=== PATIENT | female | born 1980 | race Caucasian/White ===

== ENCOUNTER 2016-08-21 11:13 | Outpatient (CLI) | payer MEDICARE, MEDICAID ==
[~2016-08-21] VITALS: Ht 160 cm; Wt 99.3 kg
[~2016-08-21 11:13] MED LIST: CITA10TA70 PO; SMV20T PO
[2016-08-21] MEDS ORDERED: DEXAMETHASONE PF 10 MG/ML (DECADRON) VIAL ONE (11:20)
--- OUTSIDE RECORDS SUMMARY | 2016-08-21 11:20 | XMS REPORT ---
Author Author Darshana Major [facility] Address [address] [place], [place] [id number] Care Team Providers Care Belt Changer Name Role Phone Darshana Major PCP Unavailable Allergies and Adverse Reactions Name Reaction Notes NO KNOWN DRUG ALLERGIES Plan of Treatment Planned Activity Comments Planned Date Planned Time Plan/Goal COMPREHEN METABOLIC PANEL 06/26/2014 12:00 AM LIPID PANEL 06/26/2014 12:00 AM Breast ultrasound 09/20/2014 12:00 AM URINALYSIS AUTO W/O SCOPE 10/19/2014 12:00 AM COMPREHEN METABOLIC PANEL 11/28/2014 12:00 AM US EXAM PELVIC COMPLETE 11/30/2014 12:00 AM Medications Active Name Start Date Estimated Completion Date SIG Comments propranolol oral tablet 40 mg 02/15/2014 take 1 tablet (40 mg) by oral route every 12 hours duloxetine oral capsule,delayed release(DR/EC) 60 mg 04/09/2014 TAKE 1 CAPSULE BY MOUTH ONCE DAILY naproxen oral tablet 500 mg 04/09/2014 TAKE 1 TABLET BY ORAL ROUTE 2 TIMES A DAY cyclobenzaprine oral tablet 10 mg 04/26/2014 take 1 tablet daily at HS propranolol oral tablet 40 mg 06/08/2014 TAKE 1 TABLET BY MOUTH EVERY 12 HOURS naproxen oral tablet 500 mg 07/18/2014 TAKE 1 TABLET BY ORAL ROUTE 2 TIMES A DAY orphenadrine citrate oral tablet extended release 100 mg 09/12/2014 01/10/2015 take 1 tablet (100 mg) by oral route 2 times per day in the morning and evening as needed for 30 days Imitrex oral tablet 25 mg take 1 tablet (25 mg) by oral route once with fluids as early as possible after the onset of a migraine attack;may repeat after 2 hours if h Topamax oral tablet 50 mg take 1 tablet (50 mg) by oral route 2 times per day Bactroban topical ointment 2 % 10/23/2014 apply a small amount to the affected area by topical route 3 times per day Toprol XL oral tablet extended release 24 hr 50 mg 10/23/2014 take 1 tablet (50 mg) by oral route once daily cyclobenzaprine oral tablet 10 mg 11/14/2014 TAKE 1 TABLET BY MOUTH EVERY NIGHT AT BEDTIME Viibryd oral tablet 40 mg 11/14/2014 take 1 tablet (40 mg) by oral route once daily with food terbinafine HCl oral tablet 250 mg 11/14/2014 take 1 tablet by oral route daily Belviq oral tablet 10 mg 11/14/2014 01/13/2015 take 1 tablet (10 mg) by oral route 2 times per day for 30 days Protonix oral tablet,delayed release (DR/EC) 40 mg 11/27/2014 02/25/2015 take 1 tablet (40 mg) by oral route once daily for 30 days Name Start Date Expiration Date SIG Comments Bactrim DS Oral tablet 800-160 mg 04/26/2013 05/03/2013 take 1 tablet by oral route every 12 hours for 7 days ibuprofen Oral tablet 800 mg 07/04/2013 11/01/2013 take 1 tablet by oral route 3 times a day for 30 days prednisone oral tablet 20 mg 08/16/2013 take 40mg daily x2 days then 1 tablet daily x4 days then 1/2 tablet daily x4 days. Provera oral tablet 5 mg 09/25/2013 12/04/2013 take 1 tablet (5 mg) by oral route once daily for 10 days every month Macrobid oral capsule 100 mg 09/27/2013 10/04/2013 take 1 capsule (100 mg) by oral route every 12 hours with food for 7 days oxybutynin chloride oral tablet 5 mg 10/18/2013 11/17/2013 take 1 tablet (5 mg ) by oral route 2 times per day for 30 days pravastatin oral tablet 40 mg 11/22/2013 03/22/2014 take 1 tablet (40 mg) by oral route once daily at bedtime for 30 days Medrol (Rah) oral tablets,dose pack 4 mg 04/10/2014 take as directed Lipitor oral tablet 40 mg 08/28/2014 11/26/2014 take 1 tablet (40 mg) by oral route once daily for 30 days Provera oral tablet 10 mg 09/20/2014 10/18/2014 take 1 tablet (10 mg) by oral route once daily for 14 days for 14 days Ultram oral tablet 50 mg 10/29/2014 11/02/2014 take 1 tablet (50 mg) by oral route every 4-6 hours as needed for 4 days Macrobid oral capsule 100 mg 11/05/2014 11/08/2014 take 1 capsule (100 mg) by oral route 2 times per day with food for 3 days Discontinued Name Start Date Discontinued Date SIG Comments Prevacid Oral 12/29/2013 naproxen Oral tablet 500 mg 02/21/2013 04/10/2013 take 1 tablet by oral route 2 times a day [id number] Oral capsule 47-313-32-30 mg 04/18/2014 take 1 capsule by oral route every 4 hours as needed not to exceed 6 capsules per 24hrs Bactroban Topical Ointment 2 % 04/26/2013 06/28/2013 apply a small amount to the affected area by topical route 3 times per day Prozac oral capsule 20 mg 08/10/2013 take 1 capsule (20 mg) by oral route once daily Toprol XL oral tablet extended release 24 hr 50 mg 07/19/2013 08/10/2013 take 1 tablet (50 mg) by oral route once daily Cymbalta oral capsule,delayed release(DR/EC) 30 mg 08/10/2013 04/18/2014 take 1 capsule daily x7 days then increase to 60mg daily cyclobenzaprine oral tablet 10 mg 11/02/2013 03/30/2014 1 tab daily at HS phentermine oral tablet 37.5 mg 11/20/2013 03/30/2014 take 1 tablet (37.5 mg) by oral route once daily before breakfast amitriptyline oral tablet 50 mg 12/29/2013 04/26/2014 take 1 tablet (50 mg) by oral route once daily at bedtime Nexium oral capsule,delayed release(DR/EC) 40 mg 12/29/2013 01/03/2014 take 1 capsule (40 mg) by oral route once daily Protonix oral tablet,delayed release (DR/EC) 40 mg 01/03/2014 06/26/2014 take 1 tablet (40 mg) by oral route once daily for 30 days Claritin oral tablet 10 mg 02/27/2014 04/18/2014 take 1 tablet (10 mg) by oral route once daily Sudafed 12 Hour oral tablet extended release 120 mg 03/30/2014 06/26/2014 take 1 tablet (120 mg) by oral route every 12 hours Fioricet oral capsule 50-300-40 mg 10/29/2014 take 1 capsule by oral route every 4 hours as needed pravastatin oral tablet 40 mg 04/24/2014 08/28/2014 TAKE 1 TABLET BY MOUTH EVERY NIGHT AT BEDTIME pantoprazole oral tablet,delayed release (DR/EC) 40 mg 05/21/2014 11/14/2014 TAKE 1 TABLET BY MOUTH ONCE DAILY cyclobenzaprine oral tablet 10 mg 06/26/2014 10/03/2014 TAKE 1 TABLET BY MOUTH EVERY NIGHT AT BEDTIME Belviq oral tablet 10 mg 06/26/2014 08/01/2014 take 1 tablet (10 mg) by oral route 2 times per day fatgue duloxetine oral capsule,delayed release(DR/EC) 60 mg 07/18/2014 11/14/2014 TAKE 1 CAPSULE BY MOUTH ONCE DAILY phentermine oral tablet 37.5 mg 08/01/2014 09/13/2014 take 1 tablet (37.5 mg) by oral route once daily before breakfast switched to belviq Contrave oral tablet extended release 8-90 mg 08/31/2014 09/03/2014 take 2 tablets by oral route 2 times per day in the morning and evening for 30 days Topamax oral tablet 25 mg 09/18/2014 10/09/2014 take 1 tablet by oral route 2 times a day propranolol oral tablet 40 mg 10/08/2014 10/23/2014 TAKE 1 TABLET BY MOUTH EVERY 12 HOURS sumatriptan nasal 11/21/2014 Flagyl oral tablet 500 mg 11/21/2014 take 1 tablet by oral route every 8 hours doxycycline hyclate oral tablet 100 mg 11/21/2014 take 1 tablet by oral route 2 times a day Nexium oral capsule,delayed release(DR/EC) 40 mg 11/14/2014 11/21/2014 take 1 capsule (40 mg) by oral route once daily Problem List Description Status Onset Back Pain Active Depression Active Gastroesophageal Reflux Active Stress Incontinence, Female Active 08/23/2013 Tachycardia Active 09/07/2013 Pelvic Pain - Right Active 09/25/2013 Abnormal Uterine Bleeding Active 09/25/2013 Insomnia Active 11/20/2013 Radiculopathy, lumbosacral Active 04/26/2014 Low Back Pain Active 06/26/2014 Myofascial pain Active 06/26/2014 Renal cyst Active 06/26/2014 Morbid obesity Active 09/13/2014 Hyperlipidemia, unspecified Active 09/13/2014 Anxiety Active 11/14/2014 Depression Active 11/14/2014 Vital Signs Date Time BP-Sys(mm[Hg] BP-[place](mm[Hg]) HR(bpm) RR(rpm) Temp WT HT HC BMI BSA BMI Percentile O2 Sat(%) 11/21/2014 4:13:00 PM 116 mmHg 59 mmHg 91 bpm 98.5 F 218 lbs 61 in 41.19 kg/m2 2.06 m2 11/14/2014 2:51:00 PM 120 mmHg 62 mmHg 85 bpm 20 rpm 98.3 F 217 lbs 61 in 41.0014 kg/m 2.0582 m 98 % 11/05/2014 4:04:00 PM 125 mmHg 64 mmHg 95 bpm 96.4 F 218.25 lbs 61 in 41.24 kg/m2 2.06 m2 10/29/2014 3:38:00 PM 124 mmHg 68 mmHg 115 bpm 97.7 F 221 lbs 61 in 41.7572 kg/m 2.0771 m 10/23/2014 1:51:00 PM 126 mmHg 74 mmHg 112 bpm 18 rpm 98.6 F 226.25 lbs 61 in 42.75 kg/m2 2.10 m2 98 % 10/09/2014 3:08:00 PM 126 mmHg 76 mmHg 113 bpm 18 rpm 98.1 F 223.5 lbs 61 in 42.2295 kg/m 2.0888 m 98 % 10/03/2014 10:32:00 AM 132 mmHg 80 mmHg 71 bpm 20 rpm 96 F 224 lbs 61 in 42.32 kg/m2 2.09 m2 09/20/2014 1:37:00 PM 120 mmHg 82 mmHg 84 bpm 98.1 F 225 lbs 62 in 41.1526 kg/m 2.1129 m 09/18/2014 2:13:00 PM 132 mmHg 72 mmHg 74 bpm 18 rpm 97.8 F 227.375 lbs 62 in 41.59 kg/m2 2.12 m2 98 % 09/13/2014 10:07:00 AM 124 mmHg 64 mmHg 99 bpm 18 rpm 97.3 F 231.5 lbs 62 in 42.3415 kg/m 2.1432 m 100 % 08/31/2014 10:45:00 AM 124 mmHg 64 mmHg 106 bpm 18 rpm 96.8 F 230 lbs 62 in 42.07 kg/m2 2.14 m2 98 % 08/01/2014 10:39:00 AM 120 mmHg 70 mmHg 95 bpm 20 rpm 97.8 F 228.125 lbs 62 in 41.7242 kg/m 2.1276 m 97 % 06/26/2014 2:20:00 PM 114 mmHg 77 mmHg 118 bpm 18 rpm 98.2 F 228.4 lbs 63 in 40.46 kg/m2 2.15 m2 96 % 06/26/2014 8:46:00 AM 112 mmHg 64 mmHg 98 bpm 18 rpm 97.1 F 229 lbs 63 in 40.5651 kg/m 2.1488 m 04/26/2014 9:38:00 AM 112 mmHg 80 mmHg 84 bpm 16 rpm 96.1 F 219 lbs 63 in 38.79 kg/m2 2.10 m2 04/10/2014 11:00:00 AM 120 mmHg 72 mmHg 88 bpm 18 rpm 97.5 F 216.6 lbs 63 in 38.3686 kg/m 2.0898 m 100 % 03/30/2014 9:55:00 AM 128 mmHg 64 mmHg 62 bpm 18 rpm 98.2 F 215.5 lbs 63 in 38.17 kg/m2 2.08 m2 98 % 02/27/2014 10:25:00 AM 120 mmHg 76 mmHg 73 bpm 16 rpm 98.3 F 209 lbs 63 in 37.0223 kg/m 2.0528 m 98 % 12/29/2013 10:44:00 AM 124 mmHg 64 mmHg 74 bpm 18 rpm 96.2 F 209.5 lbs 63 in 37.11 kg/m2 2.06 m2 98 % 12/26/2013 3:54:00 PM 124 mmHg 69 mmHg 59 bpm 96.7 F 213 lbs 63 in 37.7309 kg/m 2.0723 m 11/20/2013 2:58:00 PM 124 mmHg 66 mmHg 92 bpm 18 rpm 97.2 F 216.25 lbs 63 in 38.31 kg/m2 2.09 m2 97 % 10/25/2013 4:52:00 PM 114 mmHg 67 mmHg 95 bpm 97.2 F 216 lbs 63 in 38.2623 kg/m 2.0869 m 09/26/2013 10:18:00 AM 108 mmHg 68 mmHg 57 bpm 16 rpm 97 F 214 lbs 63 in 37.91 kg/m2 2.08 m2 99 % 09/25/2013 10:06:00 AM 122 mmHg 80 mmHg 84 bpm 97.6 F 213 lbs 63 in 37.7309 kg/m 2.0723 m 09/21/2013 1:15:00 PM 128 mmHg 78 mmHg 88 bpm 20 rpm 98.1 F 212.3 lbs 63 in 37.61 kg/m2 2.07 m2 09/07/2013 3:03:00 PM 129 mmHg 85 mmHg 91 bpm 97.2 F 219 lbs 63 in 38.7937 kg/m 2.1013 m 09/07/2013 1:38:00 PM 124 mmHg 68 mmHg 90 bpm 18 rpm 216.125 lbs 63 in 38.28 kg/m2 2.09 m2 98 % 08/29/2013 1:57:00 PM 118 mmHg 78 mmHg 101 bpm 97.4 F 217 lbs 63 in 38.4394 kg/m 2.0917 m 08/23/2013 1:48:00 PM 117 mmHg 75 mmHg 90 bpm 97.8 F 216 lbs 63 in 38.26 kg/m2 2.09 m2 08/16/2013 2:14:00 PM 124 mmHg 64 mmHg 95 bpm 18 rpm 98.5 F 212.25 lbs 63 in 37.598 kg/m 2.0687 m 98 % 08/13/2013 2:35:00 PM 99 mmHg 70 mmHg 103 bpm 18 rpm 97.3 F 211.375 lbs 63 in 37.44 kg/m2 2.06 m2 99 % 08/10/2013 3:26:00 PM 124 mmHg 74 mmHg 98 bpm 18 rpm 96.9 F 215.125 lbs 63 in 38.1073 kg/m 2.0826 m 100 % 08/03/2013 10:42:00 AM 132 mmHg 68 mmHg 109 bpm 18 rpm 96.7 F 218.375 lbs 63 in 38.68 kg/m2 2.10 m2 100 % 07/19/2013 10:17:00 AM 128 mmHg 68 mmHg 91 bpm 18 rpm 96.8 F 211 lbs 63 in 37.3766 kg/m 2.0626 m 100 % 06/28/2013 1:42:00 PM 128 mmHg 62 mmHg 102 bpm 18 rpm 96.4 F 214.125 lbs 63 in 37.93 kg/m2 2.08 m2 100 % 05/29/2013 1:27:00 PM 119 mmHg 80 mmHg 92 bpm 16 rpm 97.3 F 212 lbs 63 in 37.5537 kg/m 2.0675 m 100 % 05/08/2013 1:22:00 PM 130 mmHg 80 mmHg 108 bpm 24 rpm 98.1 F 207.125 lbs 64 in 35.55 kg/m2 2.06 m2 100 % 04/26/2013 3:04:00 PM 128 mmHg 68 mmHg 107 bpm 18 rpm 97 F 209.5 lbs 63 in 37.1109 kg/m 2.0552 m 99 % 04/10/2013 3:13:00 PM 122 mmHg 78 mmHg 102 bpm 20 rpm 97.8 F 206 lbs 63 in 36.49 kg/m2 2.04 m2 03/31/2013 10:39:00 AM 118 mmHg 82 mmHg 124 bpm 20 rpm 98.7 F 211 lbs 02/21/2013 2:07:00 PM 132 mmHg 74 mmHg 95 bpm 18 rpm 98.9 F 207.5 lbs 63 in 36.76 kg/m2 2.05 m2 98 % Social History Name Description Comments Alcohol Use - Rare Tobacco Current every day smoker History of Procedures Date Ordered Description Order Status 02/21/2013 12:00 AM URINALYSIS AUTO W/O SCOPE Reviewed 02/21/2013 12:00 AM URINE CULTURE/COLONY COUNT Returned 03/31/2013 12:00 AM X-RAY EXAM L-S SPINE 07/24 VWS Returned 03/31/2013 12:00 AM FLU VACCINE NASAL Reviewed 03/31/2013 12:00 AM DESTRUCT PREMALG LESION Reviewed 05/08/2013 12:00 AM COMPREHEN METABOLIC PANEL Returned 05/29/2013 12:00 AM COMPLETE CBC W/AUTO DIFF WBC Reviewed 05/29/2013 12:00 AM METABOLIC PANEL TOTAL CA Reviewed 05/29/2013 12:00 AM ASSAY OF GONADOTROPIN (FSH) Reviewed 05/29/2013 12:00 AM ASSAY OF PROLACTIN Reviewed 05/29/2013 12:00 AM ASSAY THYROID STIM HORMONE Reviewed 06/28/2013 12:00 AM ECG MONIT/REPRT UP TO 48 HRS Returned 06/28/2013 12:00 AM COMPLETE CBC W/AUTO DIFF WBC Returned 06/28/2013 12:00 AM ASSAY THYROID STIM HORMONE Returned 06/28/2013 12:00 AM COMPREHEN METABOLIC PANEL Returned 06/28/2013 12:00 AM Rapid Urine drug screen Returned 08/03/2013 12:00 AM THER/PROPH/DIAG INJ SC/IM Reviewed 08/13/2013 12:00 AM THER/PROPH/DIAG INJ SC/IM Reviewed 08/29/2013 12:00 AM CYSTOMETROGRAM W/SINGER AND UNLOADER&UP Reviewed 08/29/2013 12:00 AM ELECTRO-UROFLOWMETRY FIRST Reviewed 08/29/2013 12:00 AM INTRAABDOMINAL PRESSURE TEST Reviewed 09/20/2013 12:00 AM URINALYSIS AUTO W/SCOPE Returned 09/21/2013 12:00 AM URINALYSIS AUTO W/SCOPE Returned 09/25/2013 12:00 AM US EXAM PELVIC COMPLETE Reviewed 09/27/2013 12:00 AM US EXAM PELVIC COMPLETE Returned 09/21/2013 12:00 AM INSERT BLADDER CATHETER Reviewed 12/28/2013 12:00 AM US EXAM PELVIC COMPLETE Returned 11/20/2013 12:00 AM COMPLETE CBC W/AUTO DIFF WBC Returned 11/20/2013 12:00 AM COMPREHEN METABOLIC PANEL Returned 11/20/2013 12:00 AM LIPID PANEL Returned 11/20/2013 12:00 AM DESTRUCT PREMALG LES 2-14 Reviewed 11/20/2013 12:00 AM DESTRUCT PREMALG LESION Reviewed 02/27/2014 12:00 AM THER/PROPH/DIAG INJ SC/IM Reviewed 03/30/2014 12:00 AM THER/PROPH/DIAG INJ SC/IM Reviewed 04/26/2014 12:00 AM MRI LUMBAR SPINE W/O DYE Returned 06/26/2014 12:00 AM US EXAM ABDO BACK WALL COMP Returned 08/01/2014 12:00 AM LIPID PANEL Returned 08/01/2014 12:00 AM ASSAY THYROID STIM HORMONE Returned 06/26/2014 12:00 AM US EXAM ABDO BACK WALL COMP Reviewed 09/28/2014 12:00 AM Breast ultrasound Returned 09/20/2014 12:00 AM SPECIMEN HANDLING OFFICE-LAB Reviewed 09/20/2014 12:00 AM CYTOPATH C/V THIN LAYER Returned 10/23/2014 12:00 AM COMPLETE CBC W/AUTO DIFF WBC Returned 10/23/2014 12:00 AM COMPREHEN METABOLIC PANEL Returned 10/25/2014 12:00 AM URINE BACTERIA CULTURE Returned 11/05/2014 12:00 AM URINALYSIS NONAUTO W/SCOPE Returned Results Summary Data and Description Results 05/08/2013 2:25 PM GLUCOSE 100.0 mg/dLSODIUM 139.0 mmol/LPOTASSIUM 5.10 mmol/ LCHLORIDE 105.0 mmol/LCO2 24.0 mmol/LBUN 10.0 mg/dLCREATININE 0.70 mg/dLSGOT/ AST 19.0 IU/LSGPT/ALT 22.0 IU/LALK PHOS 73.0 IU/LTOTAL PROTEIN 7.0 g/dLALBUMIN 4.40 g/dLTOTAL BILI 0.20 mg/dLCALCIUM 9.80 mg/dLeGFR >60 mL/min/1.73 m2 05/29/2013 2:05 PM WBC 8.9 RBC 4.39 HGB 13.70 g/dLHCT 41.70 %MCV 95.0 fLMCH 31.20 pgMCHC 32.90 g/dLRDW CV 12.60 %MPV 10.10 fLPLT 371 %NEUT 50.90 %%LYMP 41.50 %%MONO 4.70 %%EOS 2.50 %%BASO 0.40 %#NEUT 4.52 #LYMP 3.69 #MONO 0.42 #EOS 0.22 #BASO 0.04 TSH 2.350 uIU/mLFSH 6.80 mIU/mLGLUCOSE 95.0 mg/dLSODIUM 140.0 mmol/LPOTASSIUM 5.50 mmol/LCHLORIDE 107.0 mmol/LCO2 26.0 mmol/LBUN 10.0 mg/ dLCREATININE 0.70 mg/dLCALCIUM 10.0 mg/dLeGFR >60 mL/min/1.73 m2 06/29/2013 3:10 PM WBC 9.1 RBC 4.25 HGB 13.30 g/dLHCT 40.20 %MCV 95.0 fLMCH 31.30 pgMCHC 33.10 g/dLRDW CV 12.70 %MPV 9.80 fLPLT 326 %NEUT 47.50 %%LYMP 45.30 %%MONO 4.60 %%EOS 2.20 %%BASO 0.40 %#NEUT 4.30 #LYMP 4.11 #MONO 0.42 #EOS 0.20 #BASO 0.04 GLUCOSE 77.0 mg/dLSODIUM 140.0 mmol/LPOTASSIUM 3.90 mmol/ LCHLORIDE 104.0 mmol/LCO2 25.0 mmol/LBUN 12.0 mg/dLCREATININE 0.80 mg/dLSGOT/ AST 14.0 IU/LSGPT/ALT 17.0 IU/LALK PHOS 69.0 IU/LTOTAL PROTEIN 7.50 g/dLALBUMIN 4.20 g/dLTOTAL BILI 0.20 mg/dLCALCIUM 10.10 mg/dLeGFR >60 mL/min/1.73 m2TSH 1.520 uIU/mL 06/29/2013 3:15 PM Cannabinoids (THC) NEGATIVE Phencyclidine (PCP) NEGATIVE Cocaine NEGATIVE Methamphetamine NEGATIVE Opiates NEGATIVE Amphetamine NEGATIVE Benzodiazepines NEGATIVE Methadone NEGATIVE Barbiturates NEGATIVE Oxycodone NEGATIVE Propoxyphene (PPX) NEGATIVE 09/07/2013 4:20 PM WBC 9.5 RBC 4.19 HGB 13.20 g/dLHCT 40.10 %MCV 96.0 fLMCH 31.50 pgMCHC 32.90 g/dLRDW CV 13.80 %MPV 9.20 fLPLT 312 %NEUT 52.60 %%LYMP 41.50 %%MONO 3.30 %%EOS 2.30 %%BASO 0.30 %#NEUT 4.98 #LYMP 3.93 #MONO 0.31 #EOS 0.22 #BASO 0.03 GLUCOSE 91.0 mg/dLSODIUM 138.0 mmol/LPOTASSIUM 4.80 mmol/ LCHLORIDE 104.0 mmol/LCO2 22.0 mmol/LBUN 9.0 mg/dLCREATININE 0.80 mg/dLCALCIUM 9.10 mg/dLeGFR >60 mL/min/1.73 m2ABO/Rh Type A Positive 09/12/2013 6:00 AM TEST UR NEGATIVE 09/20/2013 3:52 PM COLOR YELLOW APPEARANCE CLEAR SPEC GRAV >=1.030 pH 6.0 PROTEIN NEGATIVE GLUCOSE NEGATIVE KETONE NEGATIVE BILIRUBIN NEGATIVE BLOOD TRACE -INTACT NITRITE NEGATIVE LEUK SCREEN SMALL CASTS/LPF NEGATIVE CRYSTALS NEGATIVE MUCOUS THRDS NEGATIVE BACTERIA FEW EPITH CELLS FEW SQUAMOUS TRICHOMONAS NEGATIVE YEAST NEGATIVE 09/22/2013 4:12 PM COLOR YELLOW APPEARANCE CLEAR SPEC GRAV 1.010 pH 6.5 PROTEIN NEGATIVE GLUCOSE NEGATIVE KETONE NEGATIVE BILIRUBIN NEGATIVE BLOOD NEGATIVE NITRITE NEGATIVE LEUK SCREEN NEGATIVE CASTS/LPF NEGATIVE CRYSTALS NEGATIVE MUCOUS THRDS NEGATIVE BACTERIA 2++ EPITH CELLS FEW SQUAMOUS TRICHOMONAS NEGATIVE YEAST NEGATIVE 11/21/2013 12:10 PM WBC 8.5 RBC 4.17 HGB 13.20 g/dLHCT 39.70 %MCV 95.0 fLMCH 31.70 pgMCHC 33.20 g/dLRDW CV 13.0 %MPV 9.70 fLPLT 326 %NEUT 46.20 %%LYMP 44.40 %%MONO 4.30 %%EOS 4.60 %%BASO 0.50 %#NEUT 3.92 #LYMP 3.76 #MONO 0.36 #EOS 0.39 # BASO 0.04 GLUCOSE 99.0 mg/dLSODIUM 137.0 mmol/LPOTASSIUM 4.10 mmol/LCHLORIDE 106.0 mmol/LCO2 23.0 mmol/LBUN 8.0 mg/dLCREATININE 0.70 mg/dLSGOT/AST 20.0 IU/ LSGPT/ALT 18.0 IU/LALK PHOS 57.0 IU/LTOTAL PROTEIN 6.40 g/dLALBUMIN 3.80 g/ dLTOTAL BILI 0.40 mg/dLCALCIUM 8.90 mg/dLeGFR 60 TRIGLYCERIDES 289.0 mg/ dLCHOLESTEROL 283.0 mg/dLHDL 33.0 mg/dLLDL (CALC) 192.0 mg/dL 08/27/2014 10:00 AM TRIGLYCERIDES 271.0 mg/dLCHOLESTEROL 198.0 mg/dLHDL 30.0 mg/ dLLDL (CALC) 114.0 mg/dLTSH 1.740 uIU/mL 10/22/2014 1:48 PM COLOR YELLOW APPEARANCE HAZY SPEC GRAV 1.010 pH 6.0 PROTEIN NEGATIVE GLUCOSE NEGATIVE KETONE NEGATIVE BILIRUBIN NEGATIVE BLOOD NEGATIVE NITRITE NEGATIVE LEUK SCREEN NEGATIVE 10/23/2014 2:36 PM WBC 8.7 RBC 4.04 HGB 12.60 g/dLHCT 38.50 %MCV 95.0 fLMCH 31.20 pgMCHC 32.70 g/dLRDW CV 13.0 %MPV 10.0 fLPLT 298 %NEUT 54.10 %%LYMP 37.0 % %MONO 5.30 %%EOS 3.40 %%BASO 0.20 %#NEUT 4.73 #LYMP 3.23 #MONO 0.46 #EOS 0.30 # BASO 0.02 GLUCOSE 103.0 mg/dLSODIUM 142.0 mmol/LPOTASSIUM 4.30 mmol/LCHLORIDE 112.0 mmol/LCO2 22.0 mmol/LBUN 12.0 mg/dLCREATININE 0.80 mg/dLSGOT/AST 13.0 IU/ LSGPT/ALT 23.0 IU/LALK PHOS 64.0 IU/LTOTAL PROTEIN 6.20 g/dLALBUMIN 4.0 g/ dLTOTAL BILI 0.30 mg/dLCALCIUM 9.50 mg/dLeGFR >60 mL/min/1.73 m2 11/06/2014 12:06 PM COLOR YELLOW APPEARANCE CLEAR SPEC GRAV <=1.005 pH 6.5 PROTEIN NEGATIVE GLUCOSE NEGATIVE KETONE NEGATIVE BILIRUBIN NEGATIVE BLOOD LARGE NITRITE NEGATIVE LEUK SCREEN NEGATIVE CASTS/LPF NEGATIVE CRYSTALS NEGATIVE MUCOUS THRDS NEGATIVE BACTERIA FEW EPITH CELLS 1+ SQUAMOUS TRICHOMONAS NEGATIVE YEAST NEGATIVE History Of Immunizations Not available. History of Past Illness Name Date of Onset Comments Back Pain Gastroesophageal Reflux Depression Stress Incontinence, Female 08/23/2013 Tachycardia 09/07/2013 Pelvic Pain - Right 09/25/2013 Abnormal Uterine Bleeding 09/25/2013 Insomnia 11/20/2013 Headache shoulder pain Hyperlipidemia Radiculopathy, lumbosacral 04/26/2014 Low Back Pain 06/26/2014 Myofascial pain 06/26/2014 Renal cyst 06/26/2014 incidental finding of left renal lesion found on lumbar MRI dated 06/06/14. Renal US for follow up ordered. Morbid obesity 09/13/2014 Hyperlipidemia, unspecified 09/13/2014 Anxiety 11/14/2014 Depression 11/14/2014 Back Pain Feb 21 2013 2:10PM Back Pain Mar 31 2013 10:40AM Warts Mar 31 2013 10:40AM Wart Mar 31 2013 11:44AM Low Back Pain Apr 10 2013 3:19PM Local Infection Apr 26 2013 3:06PM Laceration, toe with complication May 08 2013 1:27PM Back Pain May 08 2013 1:27PM Open wound of foot except toe(s) alone; complicated May 08 2013 1:27PM Amenorrhea, Secondary May 29 2013 1:29PM Back Pain Jun 28 2013 1:45PM Left Pain in joint; Elbow Jun 28 2013 1:45PM Tachycardia Jun 28 2013 1:45PM Tachycardia Jul 19 2013 10:19AM Upper Respiratory Infections Aug 03 2013 10:45AM Depression Aug 10 2013 3:29PM Tachycardia Aug 10 2013 3:29PM Urinary Incontinence Aug 10 2013 3:29PM Disturbance Of Skin Sensation Aug 16 2013 2:17PM Headache Aug 13 2013 2:39PM Stress Incontinence, Female Aug 23 2013 1:56PM Stress Incontinence Aug 29 2013 1:59PM Back Pain Sep 07 2013 1:40PM Disturbance Of Skin Sensation Sep 07 2013 1:40PM Depression Sep 07 2013 1:40PM Tachycardia Sep 07 2013 1:40PM Stress Incontinence, Female Sep 07 2013 3:06PM Incontinence of Urine Sep 20 2013 3:11PM Urgency of urination Sep 21 2013 1:31PM Postoperative Visit Sep 25 2013 10:11AM Stress Incontinence, Female Sep 25 2013 10:11AM Pelvic Pain - Right Sep 25 2013 10:11AM Abnormal Uterine Bleeding Sep 25 2013 10:11AM Pelvic Pain Sep 25 2013 10:46AM Abnormal Uterine Bleeding Sep 25 2013 10:46AM Left Ulnar nerve entrapment Sep 26 2013 10:22AM Postoperative Visit Oct 25 2013 4:56PM Ovarian Cyst Oct 26 2013 9:55AM Depression Nov 20 2013 3:00PM Gastroesophageal Reflux Nov 20 2013 3:00PM Insomnia Nov 20 2013 3:00PM Screening for Ischemic Heart Disease Nov 20 2013 3:00PM Warts Nov 20 2013 3:00PM Body Mass Index [BMI]; body mass index between 30-39, adult; body mass index 38.0-38.9, adult Nov 20 2013 3:00PM Warts Nov 21 2013 4:37PM Stress Incontinence, Female Dec 26 2013 3:58PM Insomnia Dec 29 2013 10:46AM Depression Dec 29 2013 10:46AM Gastroesophageal Reflux Dec 29 2013 10:46AM Upper Respiratory Infections Feb 27 2014 10:28AM Eustachian tube dysfunction Feb 27 2014 10:28AM Back Pain Mar 30 2014 9:58AM Shoulder pain Mar 30 2014 9:58AM Headache Mar 30 2014 9:58AM Eustachian tube dysfunction Mar 30 2014 9:58AM Right shoulder pain Apr 10 2014 11:02AM Low Back Pain Apr 26 2014 9:40AM Radiculopathy, lumbosacral Apr 26 2014 9:40AM Low Back Pain Jun 26 2014 8:50AM Myofascial pain Jun 26 2014 8:50AM Left Renal cyst Jun 26 2014 8:50AM Obesity Jun 26 2014 2:22PM Dietary counseling Jun 26 2014 2:22PM Exercise counseling Jun 26 2014 2:22PM Renal lesion Jun 26 2014 2:22PM Hyperlipidemia Jun 26 2014 2:22PM Obesity (BMI 35.0-39.9 without comorbidity) Aug 01 2014 10:44AM Fatigue Aug 01 2014 10:44AM Hyperlipidemia, unspecified Aug 01 2014 10:44AM Back pain Aug 01 2014 10:44AM Insomnia Aug 01 2014 10:44AM Radiculopathy, lumbosacral Aug 01 2014 10:44AM Depression Aug 01 2014 10:44AM Depression Aug 31 2014 10:47AM Morbid obesity with BMI of 40.0-44.9, adult Aug 31 2014 10:47AM Hyperlipidemia, unspecified Sep 13 2014 10:09AM Insomnia Sep 13 2014 10:09AM Low Back Pain Sep 13 2014 10:09AM Radiculopathy, lumbosacral Sep 13 2014 10:09AM Stress Incontinence, Female Sep 13 2014 10:09AM Tachycardia Sep 13 2014 10:09AM Depression Sep 13 2014 10:09AM Gastroesophageal Reflux Sep 13 2014 10:09AM Morbid obesity Sep 13 2014 10:09AM Migraine Sep 18 2014 2:15PM Leg pain, calf left Sep 18 2014 2:15PM Routine gynecological examination Sep 20 2014 1:45PM Breast Mass, left Sep 20 2014 1:45PM Metrorrhagia Sep 20 2014 1:45PM Breast Lump, left Sep 20 2014 2:12PM Myofascial pain Oct 03 2014 8:32AM Low Back Pain Oct 03 2014 10:36AM Myofascial pain Oct 03 2014 10:36AM Back pain Oct 09 2014 3:09PM Morbid obesity Oct 09 2014 3:09PM Tachycardia Oct 09 2014 3:09PM Depression Oct 09 2014 3:09PM Gastroesophageal Reflux Oct 09 2014 3:09PM Dysuria Oct 19 2014 10:34AM Abdominal Pain Oct 23 2014 1:53PM Tachycardia Oct 23 2014 1:53PM Atopic dermatitis Oct 23 2014 1:53PM Dysuria Oct 25 2014 3:47PM Pelvic Inflammatory Disease Oct 29 2014 3:47PM Urinary Tract Infection Nov 05 2014 4:10PM Urinary Frequency Nov 05 2014 4:10PM Morbid obesity Nov 14 2014 2:56PM Tachycardia Nov 14 2014 2:56PM Depression Nov 14 2014 2:56PM Gastroesophageal Reflux Nov 14 2014 2:56PM Anxiety Nov 14 2014 2:56PM Onychia of toe of left foot Nov 14 2014 2:56PM Body mass index 40.0-44.9, adult Nov 14 2014 2:56PM Pelvic Pain Nov 22 2014 1:04PM Abnormal Uterine Bleeding Nov 21 2014 4:23PM Pelvic Pain Nov 21 2014 4:23PM Stress incontinence Nov 21 2014 4:23PM Payers Insurance Name Company Name Plan Name Plan Number Policy Number Policy Group Number Start Date [employer] - [place] [employer] - [place] [id number] N/A [employer] [place] [employer] [place] [id number] N/A History of Encounters Visit Date Visit Type Provider 11/21/2014 Office visit Davi Ybarra MD 11/14/2014 Office visit Darshana Major STOCK LETTERER 11/05/2014 Office visit Mary Hector STOCK LETTERER 10/29/2014 Office visit Mary Hector STOCK LETTERER 10/23/2014 Office visit Darshana Major STOCK LETTERER 10/09/2014 Office visit Darshana Pedrito STOCK LETTERER 10/03/2014 Office visit Jamee Tinsley BOARD CERTIFIED FAMILY PHYSICIAN 09/20/2014 Office visit Mary Hector STOCK LETTERER 09/18/2014 Office visit Darshana Pedrito STOCK LETTERER 09/13/2014 Office visit Darshana Walker STOCK LETTERER 09/11/2014 Voided Jamee Tinsley BOARD CERTIFIED FAMILY PHYSICIAN 08/31/2014 Office visit Darshana Walker STOCK LETTERER 08/01/2014 Office visit Darshana Walker STOCK LETTERER 06/26/2014 Office visit Jamee Tinsley BOARD CERTIFIED FAMILY PHYSICIAN 06/26/2014 Office visit Yazmin Casillas STOCK LETTERER 04/26/2014 Office visit Jamee Tinsley BOARD CERTIFIED FAMILY PHYSICIAN 04/10/2014 Office visit Yazmin Casillas STOCK LETTERER 03/30/2014 Office visit Darshana Walker STOCK LETTERER 02/27/2014 Office visit Darshana Walker STOCK LETTERER 12/29/2013 Office visit Darshana Walker STOCK LETTERER 12/26/2013 Office visit Davi Ybarra MD 11/20/2013 Office visit Darshana Major STOCK LETTERER 10/25/2013 Surgery Davi Ybarra MD 09/26/2013 Office visit Darshana Major STOCK LETTERER 09/25/2013 Office visit Davi Ybarra MD 09/21/2013 Office visit Magaly Conde MD 09/12/2013 Hospital Davi Ybarra MD 09/12/2013 [facility] Magaly Conde MD 09/07/2013 Office visit Darshana Major STOCK LETTERER 09/07/2013 Surgery Davi Ybarra MD 08/29/2013 Office visit Davi Ybarra MD 08/29/2013 Voided Magaly Conde MD 08/23/2013 Office visit Davi Ybarra MD 08/16/2013 Office visit Darshana Major STOCK LETTERER 08/13/2013 Office visit Augustine Mayberry STOCK LETTERER 08/10/2013 Office visit Darshana Majro STOCK LETTERER 08/03/2013 Office visit Darshana Major STOCK LETTERER 07/19/2013 Office visit Darshana Major STOCK LETTERER 06/28/2013 Office visit Darshana Major STOCK LETTERER 05/29/2013 Office visit Augustine Mayberry STOCK LETTERER 05/08/2013 Office visit Darshana Major STOCK LETTERER 04/26/2013 Office visit Darshana Major STOCK LETTERER 04/10/2013 Office visit Valorie Rodriguez MD 03/31/2013 Office visit Darshana Major STOCK LETTERER 02/21/2013 Office visit Darshana Major STOCK LETTERER
[2016-08-21 11:32] VITALS: BP 117/76
[2016-08-21 12:15] VITALS: BP 123/76
--- NOTE | 2016-08-21 14:57 | Pain Medicine-Procedure ---
Procedure Pre-Op/Post-Op Diagnosis Diagnosis: disc disorder with radiculopathy, thoracic Indications for Operation mid back pain Attending Surgeon Michelle Procedure Date of Service: Aug 21, 2016 Procedure: thoracic epidural at T11-T12 Level under Fluoroscopic Guidance Procedure: Pt was identified in the holding area. After risks, benefits, and alternatives were discussed with the patient, informed consent was obtained. An IV was placed by nursing staff prior to procedure. Patient was brought to the fluoroscopy suite and placed prone on the operating table. A time out was performed. Vital signs were monitored throughout the procedure. The patient smid back was prepped and draped in the usual sterile fashion. The patients skin was anesthetized using 1% Lidocaine. A 18 gauge tuohy needle was inserted and advanced to the T11-T12 epidural space under fluoroscopic guidance using the loss of resistance technique. The needle position was confirmed in the AP and lateral view. After negative aspiration 2 ml of non-ionic contrast was injected under live fluoroscopy which showed good spread of the contrast in the epidural space at the appropriate level, there was no intravascular or subarachnoid spread. Again, after negative aspiration, 3 ml of preservative free normal saline and 10 mg of dexamethasone was injected. The needle was removed and the patient was transferred to the recovery area in stable condition. And after a brief period of observation was discharged to home in stable condition with no new neurologic deficits. Complications none FANNY EATON MD Aug 21, 2016 2:57 pm
== END 2016-08-21 12:16 ==
LOC: CARD 11:13
PROVIDERS: ATTEND Pain Medicine Pain Medicine
DX: M51.14 Intervertebral disc disorders with radiculopathy, thoracic region (principal); M47.816 Spondylosis without myelopathy or radiculopathy, lumbar region; M53.3 Sacrococcygeal disorders, not elsewhere classified; Z79.899 Other long term (current) drug therapy
CPT/HCPCS: 62321